=== PATIENT | male | born 1985 | race Caucasian/White ===

== ENCOUNTER 2019-12-22 14:10 | Inpatient (IN) | payer BC ==
[~2019-12-22] VITALS: Ht 172.7 cm; Wt 91.8 kg
[2019-12-22 15:45] VITALS: BP 121/66
--- NOTE | 2019-12-22 15:45 | NUR ---
34 year old MALE admitted to room # 416-2 for stabilization. 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 Compliant with admission procedure. Patient reports anxiety, sleeplessness, restless legs, body aches and cramps, nausea, abdominal cramping, sweats and tremors, but is unable to sit still, taps toes to floor continuously, looks about room, is able to focus eyes on nurse during interview. See assessment forms for additional information about patient status.
[2019-12-22 15:56] LABS: HEMATOCRIT 48.6 % (42.0-52.0); MEAN CORPUSCULAR HGB 31.5 pg (27.0-31.0); MEAN CORPUSCULAR HGB CONC 32.5 g/dl (33.0-37.0); MEAN PLATELET VOLUME 10.9 fl (9.6-12.3); PLATELET COUNT AUTOMATED 256 10*3/uL (130-400); RED BLOOD COUNT 5.01 10*6/uL (4.50-5.90); RED CELL DISTRI WIDTH 12.6 % (0-14.5); WHITE BLOOD COUNT 6.9 10*3/uL (4.8-10.8)
[2019-12-22 16:10] LABS: ALBUMIN 3.6 gm/dl (3.1-4.5); ALKALINE PHOSPHATASE 88 U/L (45-117); BUN 15 mg/dl (7-24); CHLORIDE 107 mmol/L (98-107); CREATININE 0.78 mg/dL (0.70-1.30); POTASSIUM 4.2 mmol/L (3.5-5.1); SGOT/AST 67 IU/L (3-35); SGPT/ALT 137 U/L (12-78); SODIUM 136 mmol/L (136-145); TOTAL PROTEIN 8.8 gm/dL (6.4-8.2)
[2019-12-22 16:13] LABS: ETHYL ALCOHOL < 3.0 mg/dl (<3)
[2019-12-22 16:21] LABS: ATYPICAL LYMPHS 3 % (0-0); PLATELET SUFFICIENCY NORMAL (NORMAL); TOTAL CELLS COUNTED 100 #CELLS
--- NOTE | 2019-12-22 17:28 | NUR ---
MEDICATED WITH PRN PO ROBAXIN, MOTRIN, AND TYLENOL FOR BODY ACHES AND CRAMPS, REQUIP FOR RESTLESS LEGS, VISTARIL FOR ANXIETY, ZOFRAN AND BENTYL FOR NAUSEA AND ABDOMINAL CRAMPS, APPLIED NICOTINE PATCH FOR SMOKING CRAVINGS, ALSO ADMINISTERED PO LIBRIUM AND SL SUBETEX SCHEDULED FOR WITHDRAWAL SYMPTOMS.
[2019-12-22 17:51] LABS: URINE AMPHETAMINES > 1000 (1000ng/ml); URINE BARBITURATES < 200 (200ng/ml); URINE BENZODIAZEPINES < 200 (200ng/ml); URINE CANNABINOIDS (THC) > 50 (50ng/ml); URINE COCAINE < 300 (300ng/ml); URINE METHADONE < 300 (300ng/ml); URINE OPIATES > 300 (300ng/ml)
[2019-12-22 18:04] LABS: URINE PHENCYCLIDINE < 25 (25ng/ml)
[2019-12-22 18:10] LABS: BACTERIA TRACE; BILIRUBIN NEGATIVE (NEGATIVE); BLOOD NEGATIVE (NEGATIVE); CLARITY CLEAR (CLEAR); COLOR YELLOW (YELLOW); GLUCOSE NEGATIVE (NEGATIVE); KETONE NEGATIVE (NEGATIVE); LEUKO ESTERASE NEGATIVE (NEGATIVE); NITRITE NEGATIVE (NEGATIVE); RBC 0-2 rbc/hpf (0-2); SPECIFIC GRAVITY 1.025 (1.005-1.030); UROBILINOGEN 0.2 E.U./dl (0.2-1.0); WBC 0-2 wbc/hpf (0-5)
--- NOTE | 2019-12-22 18:15 | NUR ---
Patient resting. Responding to scheduled and prn medications with fewer complaints of pain and anxiety.
[2019-12-22 20:00] VITALS: BP 108/59
--- NOTE | 2019-12-22 20:55 | NUR ---
PT. SLEEPING, AROUSES EASILY. LUNGS CLEAR BUT DIMINISHED BILAT, PULSE OX 99% ON RA. ABDOMEN SOFT, NONDISTENDED AND NORMO. NO PERIPHERAL EDEMA NOTED. SMOKING PATCH REMOVED AND NICOTROL INHALER GIVEN TO PATIENT PER PT PREFERENCE. LUIS VALDEZ RN
[2019-12-23] VITALS: BP 102/55
[2019-12-23 08:00] VITALS: BP 101/66
[2019-12-23 08:06] LABS: ALBUMIN 3.1 gm/dl (3.1-4.5); ALKALINE PHOSPHATASE 75 U/L (45-117); BILIRUBIN, DIRECT < 0.1 mg/dL (0.0-0.2); SGOT/AST 57 IU/L (3-35); SGPT/ALT 119 U/L (12-78); TOTAL PROTEIN 7.5 gm/dL (6.4-8.2)
--- NOTE | 2019-12-23 08:23 | NUR ---
PT MEDICATED WITH PO VISTARIL AND PO REQUIP FOR COMPLAINTS OF AGITATION AND RESTLESS LEGS. WILL MONITOR FOR EFFECTIVENESS.
--- NOTE | 2019-12-23 09:23 | NUR ---
PATIENT COMPLETELY RELAXED WITH EYES CLOSED AT THIS TIME. MEDICATION APPEARS TO HAVE BEEN EFFECTIVE. NO FURTHER COMPLAINTS VOICED.
[2019-12-23 12:00] VITALS: BP 106/69
--- NOTE | 2019-12-23 14:53 | NUR ---
Nutritional Support Services Note: Pt ordered a regular diet po. Has not ordered breakfast or lunch today. Refuses meals at this time. Staff to encourage intake. Will continue to follow for po intake. Montserrat Swartz Rdn Ld
[2019-12-23 16:00] VITALS: BP 92/45
--- NOTE | 2019-12-23 19:39 | NUR ---
Shift chart check completed.
[2019-12-23 20:00] VITALS: BP 106/60
--- NOTE | 2019-12-23 20:16 | NUR ---
PATIENT RESTING ON BACK, NO DISTRESS NOTED. SNORING RESPIRATIONS. AWAKENS EASILY, VERBALIZES NO NEEDS, PATIENT APPEARS DIAPHORETIC. WILL CONT TO MONITOR.
[2019-12-24] VITALS: BP 105/63
[2019-12-24 08:00] VITALS: BP 110/70
--- NOTE | 2019-12-24 11:13 | NUR ---
PATIENT MEETS [facility]. CINA=[id number]. PATIENT IS GOING TO FOLLOW UP WITH [facility] FOR HIS AFTERCARE PLAN. PATIENT IS SCHEDULED TO GO ON December POST DISCHARGE. BASILIO RAY B.A. INTAKE COORDIANTOR
[2019-12-24 12:00] VITALS: BP 114/82
--- NOTE | 2019-12-24 12:43 | NUR ---
[place] STAFF IN TO SEE PATIENT. [facility] WILL PROVIDE TRANSPORTATION TO FACILITY TOMORROW. BASILIO RAY B.A. LOZENGE MAKER HELPER
[2019-12-24 16:00] VITALS: BP 116/81
[2019-12-24 20:00] VITALS: BP 107/66
--- NOTE | 2019-12-24 20:50 | NUR ---
PATIENT ASSESSMENT COMPLETED AT THIS TIME WITHOUT INCIDENT, PATIENT DENIES ANY PAIN, DISTRESS, OR NEEDS AT THIS TIME. CALL LIGHT IN REACH WILL CONTINUE TO MONITOR.
[2019-12-25] VITALS: BP 101/61
--- NOTE | 2019-12-25 02:47 | NUR ---
24 HOUR CHART CHECK COMPLETED
--- NOTE | 2019-12-25 04:15 | NUR ---
PATIENT RESTING IN BED IN A POSITION OF COMFORT WITH EYES CLOSED AT THIS TIME. RESPIRATIONS EASY AND NON-LABORED. CALL LIGHT WITHIN REACH, WILL CONTINUE TO MONITOR.
[2019-12-25 05:54] LABS: BASO % 0.5 % (0.0-1.0); EOS # 0.3 10*3/uL (0.0-0.4); EOS % 3.8 % (1.0-4.0); HEMATOCRIT 48.8 % (42.0-52.0); LYMPH # 3.1 10*3/uL (1.3-4.4); LYMPH % 47.1 % (27.0-41.0); MEAN CELL VOLUME 94.4 fl (80.0-94.0); MEAN CORPUSCULAR HGB 31.1 pg (27.0-31.0); MEAN PLATELET VOLUME 11.2 fl (9.6-12.3); MONO # 0.6 10*3/uL (0.1-1.0); MONO % 9.2 % (3.0-9.0); NEUT # 2.6 10*3/uL (2.3-7.9); NEUT % 39.1 % (47.0-73.0); PLATELET COUNT AUTOMATED 270 10*3/uL (130-400); RED BLOOD COUNT 5.17 10*6/uL (4.50-5.90); RED CELL DISTRI WIDTH 12.2 % (0-14.5); WHITE BLOOD COUNT 6.5 10*3/uL (4.8-10.8)
[2019-12-25 08:00] VITALS: BP 99/56
--- NOTE | 2019-12-25 08:08 | NUR ---
NO VOICED COMPLAINTS AT THIS TIME. CALL LIGHT WITHIN REACH. TOLERATED PO MEDS WELL.
[2019-12-25] MEDS ORDERED: ZOFRAN 4 MG ED2 TAB PO (09:55)
[2019-12-25] MEDS ORDERED: ATARAX,VISTARIL50 MG PO (09:55)
--- NOTE | 2019-12-25 09:55 | NUR ---
REQUESTING TO SPEAK WITH [facility]. BASILIO RAINES. SAID SHE WOULD BE IN TO SEE HIM.
--- NOTE | 2019-12-25 11:04 | NUR ---
WENT TO PTs ROOM FOR DISCHARGE PAPERS. PT AND HIS BELONGINGS WERE GONE. PT SEEMS TO HAVE LEFT THE HOSPITAL AND WAS UNABLE TO SIGN DISCHARGE PAPERS OR PACKET. ATTEMPTED TO NOTIFIY [facility] MULTIPLE TIMES. NO ANSWER.
--- NOTE | 2019-12-25 11:05 | NUR ---
Discharge instructions reviewed with patient/family. Patient receptive and verbalizes understanding. Follow-up care arranged. Written instructions given to patient/family. NOE RAMOS
== END 2019-12-25 11:05 | disposition home or self-care (01) | DRG 897 ==
LOC: 4E 14:10
PROVIDERS: Registered Nurse; ADMIT Internal Medicine
DX: F11.23 Opioid dependence with withdrawal (principal); E44.0 Moderate protein-calorie malnutrition; F41.9 Anxiety disorder, unspecified; B19.20 Unspecified viral hepatitis C without hepatic coma; R74.0 Nonspecific elevation of levels of transaminase and lactic acid dehydrogenase [LDH]; E66.9 Obesity, unspecified; R00.1 Bradycardia, unspecified; Z68.30 Body mass index [BMI] 30.0-30.9, adult; Z87.891 Personal history of nicotine dependence; Z82.49 Family history of ischemic heart disease and other diseases of the circulatory system